=== PATIENT | male | born 1985 ===

== ENCOUNTER 2023-10-06 06:00 | Day surgery (SDC) | payer OTHER ==
[~2023-10-06] VITALS: Ht 175.3 cm; Wt 129.3 kg
[2023-10-06] MEDS ORDERED: BUPIVACAINE HCL/PF 0.5% 30ML ML ONE (07:18)
[2023-10-06] MEDS ORDERED: CEFTRIAXONE SODIUM 2,000 MG VIAL ONE (07:18)
[2023-10-06] MEDS ORDERED: METRONIDAZOLE/SODIUM CHLORIDE 500 MG/100 ML PIGGYBACK IV ONE ×2 (07:18→08:30)
[2023-10-06] MEDS ORDERED: ENOXAPARIN SODIUM 40 MG/0.4 ML SYRINGE SUBCUTANEO ONE (07:26)
[2023-10-06] MEDS ORDERED: BUPIVACAINE HCL/PF 0.5% 5MG/ML VIAL IJ ONE (08:30)
[2023-10-06] MEDS ORDERED: CEFTRIAXONE SODIUM 2,000 MG VIAL IV ONE (08:30)
[2023-10-06] MEDS ORDERED: SUGAMMADEX SODIUM 200 MG/2 ML VIAL IV ONE ×2 (09:12→10:30)
[2023-10-06] MEDS ORDERED: COLACE100 MG PO (10:38)
[2023-10-06] MEDS ORDERED: NEURONTIN300 MG PO (10:38)
[2023-10-06] MEDS ORDERED: PERCOCET 5-3251 EACH PO (10:38)
== END 2023-10-06 12:35 | disposition home or self-care (01) ==
LOC: CIR.AMB 06:00
PROVIDERS: ATTEND Surgery
DX: K42.0 Umbilical hernia with obstruction, without gangrene (principal); Z20.822 Contact with and (suspected) exposure to COVID-19
CPT/HCPCS: 49594; C1781